=== PATIENT | male | born 1985 | race Two or more races ===

== ENCOUNTER 2022-07-12 20:56 | Emergency (ER) | payer SELFPAY ==
[~2022-07-12] VITALS: Ht 165.1 cm; Wt 77.1 kg
[2022-07-12 23:29] VITALS: BP 100/47
[2022-07-12] MEDS ORDERED: FLUORESCEIN SODIUM OPHTH 1 EA STRIP ONE (23:31)
[2022-07-12] MEDS ORDERED: CIPR2.5D14 RIGHTEYE (23:42)
--- NOTE | 2022-07-12 23:45 | NUR ---
EYE DROPS MEDICINE APPLIED
[2022-07-12] MEDS: TETRACAINE HCL 0.5% OPHTALMIC 15 ML BOTTLE OP ONE (23:50)
[2022-07-12] MEDS: FLUORESCEIN SODIUM OPHTH 1 EA STRIP OP ONE (23:50)
--- NOTE | 2022-07-12 23:52 | NUR ---
Patient discharged to home in stable condition. Written and verbal after care instructions given. Patient verbalizes understanding of instruction.
== END 2022-07-12 23:52 | disposition home or self-care (01) ==
LOC: ER 21:08
DX: S05.01XA Injury of conjunctiva and corneal abrasion without foreign body, right eye, initial encounter (principal); Z60.2 Problems related to living alone; X58.XXXA Exposure to other specified factors, initial encounter; Y93.89 Activity, other specified; Y92.89 Other specified places as the place of occurrence of the external cause; Y99.8 Other external cause status